=== PATIENT | male | born 1965 | race African-American/Black ===

== ENCOUNTER 2016-12-31 09:32 | Emergency (ER) | payer MEDICAID ==
--- NOTE | 2016-12-31 10:39 | ER Document Report ---
ED General - General Chief Complaint: Sore Throat Stated Complaint: WEAKNESS,THROAT PAIN,NECK PAIN Time seen by provider: 10:36 Mode of Arrival: Ambulatory Information source: Patient Notes: This is a 51-year-old man with a history of laryngeal cancer (diagnosed in [place] in May 2016, status post radiation therapy 35: Last in September), chronic kidney disease. The patient presents to the emergency room with generalized weakness and throat pain. Patient states that he recently moved up from [place] and will be living here now. He denies any fever, chills, nausea vomiting. The throat discomfort is chronic. He denies any difficulty drinking fluids. He does report having decreased appetite. Patient did have a recent PET scan in [facility] in [place] and it showed a "little spot" in the throat that the doctor was not sure was cancer or residual radiation effects. TRAVEL OUTSIDE OF THE [place] IN LAST 30 DAYS: No - HPI Onset: Last week Onset/Duration: Gradual Quality of pain: No pain Severity: None Pain Level: Denies Associated symptoms: denies: Chills, Fever Exacerbated by: Denies Relieved by: Denies Similar symptoms previously: Yes Recently seen / treated by doctor: Yes - Related Data Allergies/Adverse Reactions: No Known Allergies Allergy (Verified 12/31/16 09:45) Past Medical History - General Information source: Patient, Relative - Patient is comfortable by his - Social History Smoking Status: Current Every Day Smoker Cigarette use (# per day): Yes - half a pack a day Chew tobacco use (# tins/day): Yes Frequency of alcohol use: None Drug Abuse: None Lives with: Spouse/Significant other Family History: Reviewed & Not Pertinent Patient has suicidal ideation: No Patient has homicidal ideation: No - Past Medical History Cardiac Medical History: Reports: Hx Hypertension Pulmonary Medical History: Reports: None EENT Medical History: Reports: None Neurological Medical History: Reports: None Endocrine Medical History: Reports: None Renal/ Medical History: Reports: Other - Chronic kidney disease. Denies: Hx Peritoneal Dialysis Malignancy Medical History: Reports Other - Laryngeal cancer GI Medical History: Reports: None Musculoskeltal Medical History: Reports None Psychiatric Medical History: Reports: None Traumatic Medical History: Reports: None Infectious Medical History: Reports: None Past Surgical History: Reports: Hx Vascular Surgery - left chest port placement - Immunizations Hx Diphtheria, Pertussis, Tetanus Vaccination: Yes Review of Systems - Review of Systems Constitutional: denies: Chills, Fever EENT: No symptoms reported Cardiovascular: No symptoms reported Respiratory: No symptoms reported Gastrointestinal: See HPI Genitourinary: No symptoms reported Male Genitourinary: No symptoms reported Musculoskeletal: No symptoms reported Skin: No symptoms reported Hematologic/Lymphatic: No symptoms reported Neurological/Psychological: Other - Generalized weakness Physical Exam - Vital signs Vitals: Temp Pulse Resp BP Pulse Ox 97.5 F 103 H 14 91/69 L 100 12/31/16 09:44 12/31/16 09:44 12/31/16 09:44 12/31/16 09:44 12/31/16 09:44 Notes: Physical exam: GENERAL: Weak appearing 51-year-old male, dry mucous membranes, appears dehydrated. The patient does have a relative low blood pressure given his history of hypertension. HEAD: Atraumatic, normocephalic. EYES: Pupils equal round and reactive to light, extraocular movements intact, sclera anicteric, conjunctiva are normal. ENT: TMs normal, nares patent, oropharynx clear without exudates. Dry mucous membranes. NECK: Normal range of motion, supple without lymphadenopathy or JVD. LUNGS: Breath sounds clear to auscultation bilaterally and equal. No wheezes rales or rhonchi. HEART: Tachycardia without murmurs, rubs or gallops. ABDOMEN: Soft, normoactive bowel sounds. No tenderness to palpation. No guarding, no rebound. No masses appreciated. EXTREMITIES: Normal range of motion, no pitting or edema. No clubbing or cyanosis. NEUROLOGICAL: Cranial nerves II through XII grossly intact. Normal speech, normal gait. PSYCH: Normal mood, normal affect. SKIN: Warm, Dry, normal turgor, no rashes or lesions noted. Course - Re-evaluation Re-evalutation: 12/31/16 12:[address] Pugh who is the patient's oncologist from [place] ([phone]). The patient's last BUN/creatinine was 36 over 4.3. He does have baseline chronic kidney disease. He had acute renal failure secondary to ATN in the setting of dehydration after one treatment of cisplatin him in the past. For this reason, further chemotherapy was withheld and he received 35 treatments of radiation (last one in September). A PET scan at the end of November showed a right lobe of the liver lesion with a differential diagnosis of a lymph node versus liver metastases (they did recommended MRI). Dr. Pugh has agreed to fax a copy of the PET scan and most recent labs. 12/31/16 14:07 I have discussed the case with Dr. Rdz is willing to admit the patient. However, the patient is not willing to come into the hospital. He states that his creatinine is normally in the "5" range and this is about the same. He is feeling better after the IV fluids. He is willing to follow-up as an outpatient of advised him to come back if there are any problems. 12/31/16 19:46 - Vital Signs Vital signs: Temp Pulse Resp BP Pulse Ox 97.4 F 75 18 108/63 98 12/31/16 14:13 12/31/16 14:13 12/31/16 14:13 12/31/16 14:13 12/31/16 14:13 - Laboratory Result Diagrams: 12/31/16 10:50 12/31/16 10:50 Laboratory results interpreted by me: 12/31/16 12/31/16 10:50 10:50 WBC 13.6 H RBC 3.23 L Hgb 11.0 L Hct 32.9 L MCV 102 H MCH 34.0 H RDW 16.2 H Seg Neutrophils % 88.8 H Lymphocytes % 5.1 L Absolute Neutrophils 12.0 H Sodium 146.4 H Potassium 3.2 L Carbon Dioxide 19 L Anion Gap 20 H BUN 74 H Creatinine 5.20 H Est GFR ( Amer) 14 L Est GFR (Non-Af Amer) 12 L Glucose 119 H AST 10 L ALT 9 L Discharge - Discharge Clinical Impression: dehydration, laryngeal cancer Condition: Stable Disposition: HOME, SELF-CARE Instructions: Oral Narcotic Medication ([facility]) Additional Instructions: Recommendations: Continue current medicines. Return to the emergency room for worsening pain or inability to swallow. For the kidney function: Follow-up with a kidney doctor. I left the number for Dr. Bowens. For the cancer: I left the number for Dr. Gaines (oncologist). For primary care doctor: I left the number for Dr. Overton Follow-up with an ENT Doctor: [facility] [address] [place] [place] [address] Toll Free: Take the hydrocodone liquid for pain. The pain medicine you're taking prescribed as a narcotic. There are several important things you should know about this medicine: 1. This medicine contains Tylenol: It is important that you do not take Tylenol (or acetaminophen) while on this medicine. Tylenol is metabolized by the liver and taking too much Tylenol (acetaminophen) can lay to liver damage and even liver failure. 2. Taking narcotics for too long can lead to physical and mental dependence. Take this medicine only if really needed and in the lowest quantity to achieve pain relief. 3. Do not drink alcohol while on this medicine. Alcohol interacts with narcotics and the combination can be dangerous. 4. Do not drive or operate machinery while on this medicine. 5. Narcotics do cause constipation, so drink plenty of fluids and daily stool softeners. Prescriptions: Hydrocodone/Acetaminophen [Hydrocodone-Apap Solution] 15 ml PO Q6HP PRN #120 solution PRN Reason: Referrals: KATHLEEN OVERTON MD [ACTIVE STAFF] - Follow up as needed (This is the number of a primary care doctor) JASON BOWENS MD [ACTIVE STAFF] - Follow up as needed (This is the number of the kidney doctor: Call tomorrow for follow-up appointment.) LENNIE GAINES MD [ACTIVE STAFF] - Follow up as needed (This is the number for the oncology doctor: Call tomorrow for an appointment.)
[2016-12-31] MEDS: NORMAL SALINE 1000 ML 1,000 ML IV PRN ×2 (10:42→12:05)
[2016-12-31] MEDS ORDERED: ONDANSETRON HCL INJ/PF 4 MG/2 ML SDV IV ONE (11:07)
[2016-12-31] MEDS ORDERED: MAG HYDROX/AL HYDROX/SIMETH SUSP 30 ML UDCUP PO ONE (11:07)
[2016-12-31] MEDS ORDERED: LIDOCAINE 2% VISCOUS SOLN 20 ML UDCUP PO ONE (11:07)
[2016-12-31] MEDS ORDERED: MORPHINE SULFATE 10 MG/ML INJ IV ONE (11:07)
[2016-12-31] MEDS ORDERED: METOCLOPRAMIDE HCL ORAL SOLN 10 MG/10 ML UDCUP PO ONE (11:07)
[2016-12-31 11:25] LABS: ABSOLUTE BASOPHILS # (AUTO) 0.1 10^3/uL (0.0-0.2); ABSOLUTE EOSINOPHILS # (AUTO) 0.1 10^3/uL (0.0-0.6); ABSOLUTE LYMPHOCYTES (AUTO) 0.7 10^3/uL (0.5-4.7); ABSOLUTE MONOCYTES (AUTO) 0.7 10^3/uL (0.1-1.4); BASOPHILS % (AUTO) 0.5 % (0-2); EOSINOPHILS % (AUTO) 0.8 % (0-6); HEMATOCRIT 32.9 % (37.9-51.0); HGB HCT DIFFERENCE 0.1; LYMPHOCYTES % (AUTO) 5.1 % (13-45); MEAN CORPUSCULAR HGB CONC 33.5 g/dL (32.0-36.0); MEAN CORPUSCULAR VOLUME 102 fl (80-97); MONOCYTES % (AUTO) 4.8 % (3-13); RED BLOOD COUNT 3.23 10^6/uL (4.35-5.55); RED CELL DISTRIBUTION WIDTH 16.2 % (11.5-14.0); SEGMENTED NEUTROPHILS % (AUTO) 88.8 % (42-78); WHITE BLOOD COUNT 13.6 10^3/uL (4.0-10.5)
[2016-12-31 11:39] LABS: ALANINE AMINOTRANSFERASE 9 U/L (21-72); ALBUMIN 3.8 g/dL (3.5-5.0); ALKALINE PHOSPHATASE 96 U/L (38-126); ASPARTATE AMINO TRANSFERASE 10 U/L (17-59); BILIRUBIN,TOTAL 0.7 mg/dL (0.2-1.3); BLOOD UREA NITROGEN 74 mg/dL (7-20); CALCIUM 10.1 mg/dL (8.4-10.2); CARBON DIOXIDE 19 mmol/L (22-30); CHLORIDE 107 mmol/L (98-107); GLUCOSE 119 mg/dL (75-110); MAGNESIUM 1.7 mg/dL (1.6-2.3); POTASSIUM 3.2 mmol/L (3.6-5.0); SODIUM 146.4 mmol/L (137-145); TOTAL PROTEIN 7.4 g/dL (6.3-8.2)
[2016-12-31 11:40] LABS: ANION GAP 20 (5-19)
[2016-12-31 11:52] LABS: APPEARANCE,URINE CLEAR; BILIRUBIN,URINE NEGATIVE (NEGATIVE); GLUCOSE, URINE NEGATIVE (NEGATIVE); KETONES,URINE NEGATIVE (NEGATIVE); LEUKOCYTE ESTERASE,URINE NEGATIVE (NEGATIVE); NITRITE,URINE NEGATIVE (NEGATIVE); PROTEIN,URINE NEGATIVE (NEGATIVE); UROBILINOGEN,URINE NEGATIVE mg/dL (<2.0)
[2016-12-31] MEDS ORDERED: POTASSIUM CHLORIDE 20 MEQ/15 ML UDCUP PO ONE (12:10)
[2016-12-31 14:15] VITALS: BP 108/63
== END 2016-12-31 14:15 | disposition home or self-care (01) ==
LOC: ER 09:32
DX: C32.9 Malignant neoplasm of larynx, unspecified (principal); E86.0 Dehydration; J02.9 Acute pharyngitis, unspecified; R53.1 Weakness; R07.0 Pain in throat; M54.2 Cervicalgia; F17.210 Nicotine dependence, cigarettes, uncomplicated
CPT/HCPCS: 36591; 99284; 96361; 96374; 96375; 36415; 83735; 85025; 80053; 81001; J3490; J2270; J2405; J7030; J1642

== ENCOUNTER → 2017-01-10 | Outpatient (CLI) | payer MEDICAID ==
[2017-01-11 10:43] LABS: ABSOLUTE BASOPHILS # (AUTO) 0.1 10^3/uL (0.0-0.2); ABSOLUTE EOSINOPHILS # (AUTO) 0.1 10^3/uL (0.0-0.6); ABSOLUTE LYMPHOCYTES (AUTO) 1.1 10^3/uL (0.5-4.7); ABSOLUTE MONOCYTES (AUTO) 0.9 10^3/uL (0.1-1.4); ABSOLUTE NEUT (AUTO) 10.6 10^3/uL (1.7-8.2); BASOPHILS % (AUTO) 0.6 % (0-2); EOSINOPHILS % (AUTO) 1.1 % (0-6); HEMATOCRIT 34.6 % (37.9-51.0); HEMOGLOBIN 11.1 g/dL (13.5-17.0); HGB HCT DIFFERENCE -1.3; LYMPHOCYTES % (AUTO) 8.6 % (13-45); MEAN CORPUSCULAR HEMOGLOBIN 32.4 pg (27.0-33.4); MEAN CORPUSCULAR HGB CONC 32.3 g/dL (32.0-36.0); MEAN CORPUSCULAR VOLUME 101 fl (80-97); MONOCYTES % (AUTO) 6.8 % (3-13); RED BLOOD COUNT 3.44 10^6/uL (4.35-5.55); RED CELL DISTRIBUTION WIDTH 16.8 % (11.5-14.0); SEGMENTED NEUTROPHILS % (AUTO) 82.9 % (42-78); WHITE BLOOD COUNT 12.7 10^3/uL (4.0-10.5)
[2017-01-11 11:02] LABS: ALANINE AMINOTRANSFERASE 17 U/L (21-72); ALBUMIN 3.8 g/dL (3.5-5.0); ALKALINE PHOSPHATASE 122 U/L (38-126); ASPARTATE AMINO TRANSFERASE 13 U/L (17-59); BILIRUBIN,TOTAL 0.6 mg/dL (0.2-1.3); BLOOD UREA NITROGEN 85 mg/dL (7-20); CALCIUM 10.2 mg/dL (8.4-10.2); CARBON DIOXIDE 13 mmol/L (22-30); CHLORIDE 106 mmol/L (98-107); CHOLESTEROL 183.63 mg/dL (0-200); Direct HDL 68 mg/dL (>40); GLUCOSE 119 mg/dL (75-110); MAGNESIUM 2.2 mg/dL (1.6-2.3); TOTAL PROTEIN 7.8 g/dL (6.3-8.2); TRIGLYCERIDES 224 mg/dL (<150)
[2017-01-11 11:13] LABS: DIRECT LDL 42 mg/dL (<100)
[2017-01-11 11:35] LABS: VLDL CHOLESTEROL 44.8 mg/dL (10-31)
[2017-01-11 11:42] LABS: POTASSIUM 4.5 mmol/L (3.6-5.0); SODIUM 145.2 mmol/L (137-145)
[2017-01-11 11:46] LABS: ANION GAP 26 (5-19)
== END ==
LOC: OD 15:37
PROVIDERS: ATTEND Internal Medicine
DX: Z00.00 Encounter for general adult medical examination without abnormal findings (principal); E78.2 Mixed hyperlipidemia; Z13.1 Encounter for screening for diabetes mellitus; Z12.5 Encounter for screening for malignant neoplasm of prostate; R79.89 Other specified abnormal findings of blood chemistry; E55.9 Vitamin D deficiency, unspecified; E66.9 Obesity, unspecified; Z79.899 Other long term (current) drug therapy
CPT/HCPCS: 36415; 80053; 80061; 82306; 83735; 84153; 84443; 85025

== ENCOUNTER 2017-01-13 14:35 | Emergency (ER) | payer MEDICAID ==
--- NOTE | 2017-01-13 15:24 | ER Document Report ---
ED Medical Screen (RME) - General Stated Complaint: WEAKNESS Time seen by provider: 15:20 Mode of Arrival: Wheelchair Information source: Patient Notes: 51-year-old male presents to ED via wheelchair for weakness. His states they went to the nephrology clinic for his first visit today and was sent over here because he is too weak. The cloth mercerizer operator told him that he was in stage IV renal failure he has not started dialysis. They just moved to the area December 17 and his states this is his second visit to the ER due to weakness. Patient's states usually when he is like that that means his fluids are low. He has laryngeal cancer and has had 35 radiation treatments to his neck. He received 1 dose of chemotherapy and he could not tolerated I have greeted and performed a rapid initial assessment of this patient. A comprehensive ED assessment and evaluation of the patient, analysis of test results and completion of medical decision making process will be conducted by an additional ED providers. TRAVEL OUTSIDE OF THE [place] IN LAST 30 DAYS: No - Related Data Allergies/Adverse Reactions: No Known Allergies Allergy (Verified 12/31/16 09:45) Past Medical History - Past Medical History Cardiac Medical History: Reports: Hx Hypertension Renal/ Medical History: Denies: Hx Peritoneal Dialysis Past Surgical History: Reports: Hx Vascular Surgery - left chest port placement - Immunizations Hx Diphtheria, Pertussis, Tetanus Vaccination: Yes Physical Exam - Vital signs Vitals: Temp Pulse Resp BP Pulse Ox 97.7 F 104 H 14 107/78 100 01/13/17 15:18 01/13/17 15:18 01/13/17 15:18 01/13/17 15:18 01/13/17 15:18 Course - Vital Signs Vital signs: Temp Pulse Resp BP Pulse Ox 97.7 F 104 H 14 107/78 100 01/13/17 15:18 01/13/17 15:18 01/13/17 15:18 01/13/17 15:18 01/13/17 15:18
[2017-01-13 15:59] LABS: HEMATOCRIT 38.8 % (37.9-51.0); HEMOGLOBIN 12.4 g/dL (13.5-17.0); HGB HCT DIFFERENCE -1.6; MEAN CORPUSCULAR HEMOGLOBIN 32.3 pg (27.0-33.4); MEAN CORPUSCULAR VOLUME 101 fl (80-97); RED BLOOD COUNT 3.84 10^6/uL (4.35-5.55); RED CELL DISTRIBUTION WIDTH 16.9 % (11.5-14.0); WHITE BLOOD COUNT 15.4 10^3/uL (4.0-10.5)
[2017-01-13 16:06] LABS: APPEARANCE,URINE CLEAR; BILIRUBIN,URINE NEGATIVE (NEGATIVE); GLUCOSE, URINE NEGATIVE (NEGATIVE); KETONES,URINE NEGATIVE (NEGATIVE); LEUKOCYTE ESTERASE,URINE NEGATIVE (NEGATIVE); NITRITE,URINE NEGATIVE (NEGATIVE); PROTEIN,URINE NEGATIVE (NEGATIVE); UROBILINOGEN,URINE NEGATIVE mg/dL (<2.0)
[2017-01-13 16:24] LABS: ALANINE AMINOTRANSFERASE 21 U/L (21-72); ALBUMIN 4.1 g/dL (3.5-5.0); ALKALINE PHOSPHATASE 128 U/L (38-126); ASPARTATE AMINO TRANSFERASE 15 U/L (17-59); BILIRUBIN,DIRECT 0.7 mg/dL (0.0-0.4); BILIRUBIN,TOTAL 0.7 mg/dL (0.2-1.3); BLOOD UREA NITROGEN 91 mg/dL (7-20); CALCIUM 10.4 mg/dL (8.4-10.2); CREATININE RESULT 5.06 mg/dL (0.52-1.25); GLUCOSE 105 mg/dL (75-110); LIPASE 86.6 U/L (23-300); POTASSIUM 4.8 mmol/L (3.6-5.0); TOTAL PROTEIN 8.1 g/dL (6.3-8.2)
[2017-01-13 16:32] LABS: BASOPHILS % (MANUAL) 0 % (0-2); EOSINOPHILS % (MANUAL) 0 % (0-6); LYMPHOCYTES % (MANUAL) 3 % (13-45); TOTAL CELLS COUNTED 100
[2017-01-13 16:33] LABS: ANISOCYTOSIS 1+; PLATELET CLUMPS PRESENT
[2017-01-13 16:36] LABS: CARBON DIOXIDE 13 mmol/L (22-30); CHLORIDE 102 mmol/L (98-107); SODIUM 140.7 mmol/L (137-145)
[2017-01-13 16:43] LABS: ANION GAP 26 (5-19)
[2017-01-13 17:27] VITALS: BP 107/71
== END 2017-01-13 17:38 | disposition left against medical advice (07) ==
LOC: ER 14:35
DX: R53.1 Weakness (principal); N19 Unspecified kidney failure; C32.9 Malignant neoplasm of larynx, unspecified; I10 Essential (primary) hypertension; Z79.899 Other long term (current) drug therapy
CPT/HCPCS: 36415; 80053; 81001; 83690; 85025; 99281

== ENCOUNTER 2017-01-15 10:37 | Emergency (ER) | payer MEDICAID ==
--- NOTE | 2017-01-15 11:03 | ER Document Report ---
ED Medical Screen (RME) - General Stated Complaint: WEAKNESS Notes: 51 yo male c/o weakness, dehydration x 1 week. Pt has laryngeal cancer, last radiation in September. c/o pain to right side of throat. + nausea, no vomiting. + chronic renal failure. TRAVEL OUTSIDE OF THE [place] IN LAST 30 DAYS: No - Related Data Allergies/Adverse Reactions: No Known Allergies Allergy (Verified 01/13/17 15:25) Past Medical History - Past Medical History Cardiac Medical History: Reports: Hx Hypertension Renal/ Medical History: Denies: Hx Peritoneal Dialysis Past Surgical History: Reports: Hx Vascular Surgery - left chest port placement - Immunizations Hx Diphtheria, Pertussis, Tetanus Vaccination: Yes Physical Exam - Vital signs Vitals: Temp Pulse Resp BP Pulse Ox 97.7 F 93 18 112/81 95 01/15/17 10:52 01/15/17 10:52 01/15/17 10:52 01/15/17 10:52 01/15/17 10:52 Course - Vital Signs Vital signs: Temp Pulse Resp BP Pulse Ox 97.7 F 93 18 112/81 95 01/15/17 10:52 01/15/17 10:52 01/15/17 10:52 01/15/17 10:52 01/15/17 10:52
[2017-01-15] MEDS ORDERED: DEXTROSE 5%-NORMAL SALINE 1,000 ML IV ONE ×2 (12:05→14:05)
--- NOTE | 2017-01-15 12:11 | ER Document Report ---
ED General - General Mode of Arrival: Ambulatory Information source: Patient, Relative TRAVEL OUTSIDE OF THE [place] IN LAST 30 DAYS: No - HPI Onset: Other - see narrative Similar symptoms previously: Yes Recently seen / treated by doctor: Yes <AIME JOHNSON - Last Filed: 01/15/17 12:04> <ESHA DOMINGO - Last Filed: 02/14/17 21:03> - General Chief Complaint: General Weakness Stated Complaint: WEAKNESS Notes: Patient is a 51-year-old male that presents to the emergency department today with complaints of generalized weakness. Patient has a history of laryngeal cancer with 35 radiation treatments and one chemotherapy treatment according to past ED records. Patient recently moved here a few weeks ago from [place]. Patient was initially seen and treated in this emergency department on December 31, was given IVF and sent home after he felt much better. Patient was seen for his first appointment at a devulcanizer operator office 2 days ago and was referred here secondary to weakness however the patient had lab work done and he was RME'd but he left without being seen secondary to extended wait times. at bedside states the patient has continued to be weak and when he feels like this, he is normally dehydrated. states the patient has not been taking fluids or food secondary to throat pain which is a chronic issue for him now. (AIME JOHNSON) - Related Data Allergies/Adverse Reactions: No Known Allergies Allergy (Verified 01/13/17 15:25) Past Medical History - General Information source: Patient - Social History Smoking Status: Current Every Day Smoker - 1/2 ppd Cigarette use (# per day): Yes Frequency of alcohol use: None Drug Abuse: None Lives with: Family Family History: Reviewed & Not Pertinent Patient has suicidal ideation: No Patient has homicidal ideation: No - Past Medical History Cardiac Medical History: Reports: Hx Hypertension Past Surgical History: Reports: Hx Vascular Surgery - left chest port placement - Immunizations Hx Diphtheria, Pertussis, Tetanus Vaccination: Yes <AIME JOHNSON - Last Filed: 01/15/17 12:04> Review of Systems - Review of Systems Constitutional: See HPI, Weakness, Other - decreased food and fluid intake EENT: See HPI, Throat pain - chronic Cardiovascular: No symptoms reported Respiratory: No symptoms reported Gastrointestinal: No symptoms reported Genitourinary: No symptoms reported Male Genitourinary: No symptoms reported Musculoskeletal: No symptoms reported Skin: No symptoms reported Hematologic/Lymphatic: No symptoms reported Neurological/Psychological: No symptoms reported -: Yes All other systems reviewed and negative <AIME JOHNSON - Last Filed: 01/15/17 12:04> Physical Exam - General General appearance: Alert - HEENT Head: Normocephalic, Atraumatic Eyes: Normal Conjunctiva: Normal Extraocular movements intact: Yes Mucous membranes: Dry Pharynx: Normal, Other - strong odor of ketones on breath Neck: Normal - Respiratory Respiratory status: No respiratory distress Chest status: Nontender Breath sounds: Normal - Cardiovascular Rhythm: Regular Heart sounds: Normal auscultation Murmur: No - Abdominal Inspection: Other - cachectic Bowel sounds: Normal Tenderness: Nontender - Extremities General upper extremity: Normal inspection, Normal ROM. No: Edema General lower extremity: Normal inspection, Normal ROM. No: Edema - Neurological Neuro grossly intact: Yes Cognition: Normal Speech: Normal - Psychological Associated symptoms: Normal affect, Normal mood - Skin Skin Temperature: Warm Skin Moisture: Dry Skin Color: Normal <ALEXAIME - Last Filed: 01/15/17 12:04> Course <AIME JOHNSON - Last Filed: 01/15/17 12:04> - Laboratory Result Diagrams: 01/15/17 12:47 01/15/17 12:47 <ESHA DOMINGO - Last Filed: 02/14/17 21:03> - Re-evaluation Re-evalutation: 01/15/17 14:05 Patient reports the lidocaine and Maalox did help numb this throat and felt better. (ESHA DOMINGO) - Vital Signs Vital signs: Temp Pulse Resp BP Pulse Ox 98.6 F 87 18 123/77 100 01/15/17 16:11 01/15/17 16:11 01/15/17 16:11 01/15/17 16:11 01/15/17 16:11 - Laboratory Laboratory results interpreted by me: 01/15/17 01/15/17 01/15/17 12:47 12:47 12:59 WBC 15.1 H RBC 3.27 L Hgb 10.5 L Hct 32.2 L MCV 99 H RDW 16.9 H Seg Neuts % (Manual) 90 H Lymphocytes % (Manual) 6 L Abs Neuts (Manual) 13.6 H Carbon Dioxide 13 L Anion Gap 24 H BUN 100 H Creatinine 5.40 H Est GFR ( Amer) 14 L Est GFR (Non-Af Amer) 11 L Direct Bilirubin 0.6 H AST 11 L ALT 13 L Urine Ketones TRACE H Discharge <AIME JOHNSON - Last Filed: 01/15/17 12:04> <ESHA DOMINGO - Last Filed: 02/14/17 21:03> - Discharge Clinical Impression: Dehydration, Ketosis, Chronic throat pain, History of throat cancer Condition: Stable Disposition: HOME, SELF-CARE Additional Instructions: Increase your intake of food and fluids. Follow-up with your doctor to discuss options for treating your throat pain. Referrals: ZAYRA LARA MD [Primary Care Provider] - Follow up as needed Scribe Attestation: 01/15/17 14:08 I personally performed the services described in the documentation, reviewed and edited the documentation which was dictated to the scribe in my presence, and it accurately records my words and actions. (ESHA DOMINGO) Scribe Documentation - Scribe Written by Lyric:: Lyric Deluna, 01/15/2017 1214 acting as scribe for :: Sharif <AIME JOHNSON - Last Filed: 01/15/17 12:04>
[2017-01-15] MEDS ORDERED: LIDOCAINE 2% VISCOUS SOLN 20 ML UDCUP PO ONE (13:08)
[2017-01-15] MEDS ORDERED: MAG HYDROX/AL HYDROX/SIMETH SUSP 30 ML UDCUP PO ONE (13:08)
[2017-01-15 13:11] LABS: HEMATOCRIT 32.2 % (37.9-51.0); HEMOGLOBIN 10.5 g/dL (13.5-17.0); HGB HCT DIFFERENCE -0.7; MEAN CORPUSCULAR HEMOGLOBIN 32.1 pg (27.0-33.4); MEAN CORPUSCULAR HGB CONC 32.6 g/dL (32.0-36.0); MEAN CORPUSCULAR VOLUME 99 fl (80-97); RED BLOOD COUNT 3.27 10^6/uL (4.35-5.55); RED CELL DISTRIBUTION WIDTH 16.9 % (11.5-14.0); WHITE BLOOD COUNT 15.1 10^3/uL (4.0-10.5)
[2017-01-15 13:18] LABS: APPEARANCE,URINE CLEAR; BILIRUBIN,URINE NEGATIVE (NEGATIVE); GLUCOSE, URINE NEGATIVE (NEGATIVE); KETONES,URINE TRACE mg/dL (NEGATIVE); LEUKOCYTE ESTERASE,URINE NEGATIVE (NEGATIVE); NITRITE,URINE NEGATIVE (NEGATIVE); PROTEIN,URINE NEGATIVE (NEGATIVE); URINE SPECIFIC GRAVITY 1.017; UROBILINOGEN,URINE NEGATIVE mg/dL (<2.0)
[2017-01-15 13:31] LABS: ALANINE AMINOTRANSFERASE 13 U/L (21-72); ALBUMIN 3.5 g/dL (3.5-5.0); ALKALINE PHOSPHATASE 114 U/L (38-126); ASPARTATE AMINO TRANSFERASE 11 U/L (17-59); BILIRUBIN,DIRECT 0.6 mg/dL (0.0-0.4); BILIRUBIN,TOTAL 0.6 mg/dL (0.2-1.3); BLOOD UREA NITROGEN 100 mg/dL (7-20); CALCIUM 9.7 mg/dL (8.4-10.2); CARBON DIOXIDE 13 mmol/L (22-30); CHLORIDE 105 mmol/L (98-107); GLUCOSE 95 mg/dL (75-110); SODIUM 141.7 mmol/L (137-145); TOTAL PROTEIN 7.1 g/dL (6.3-8.2)
[2017-01-15 13:34] LABS: BASOPHILS % (MANUAL) 0 % (0-2); EOSINOPHILS % (MANUAL) 1 % (0-6); LYMPHOCYTES % (MANUAL) 6 % (13-45); TOTAL CELLS COUNTED 100
[2017-01-15 13:35] LABS: ANION GAP 24 (5-19); ANISOCYTOSIS 1+; HYPOCHROMASIA SLIGHT; ROULEAUX 1+; TOXIC GRANULATION SLIGHT; TOXIC VACUOLATION PRESENT
[2017-01-15 16:12] VITALS: BP 123/77
[2017-01-16 17:38] LABS: PATH REVIEW PATHOLOGIST REVIEWED
== END 2017-01-15 16:11 | disposition home or self-care (01) ==
LOC: ER 10:37
DX: E86.0 Dehydration (principal); E88.89 Other specified metabolic disorders; G89.29 Other chronic pain; R07.0 Pain in throat; C32.9 Malignant neoplasm of larynx, unspecified; R53.1 Weakness; R11.0 Nausea; I12.9 Hypertensive chronic kidney disease with stage 1 through stage 4 chronic kidney disease, or unspecified chronic kidney disease; N18.9 Chronic kidney disease, unspecified; Z85.21 Personal history of malignant neoplasm of larynx; F17.210 Nicotine dependence, cigarettes, uncomplicated
CPT/HCPCS: 36591; 99285; 96361; 96365; 36415; 83690; 85025; 80053; 81001; J3490 ×2